=== PATIENT | male | born 1995 | race African-American/Black ===

== ENCOUNTER 2016-06-20 21:11 | Emergency (ER) | payer SELFPAY ==
[~2016-06-20] VITALS: Ht 195.6 cm; Wt 86.8 kg
[2016-06-20] MEDS ORDERED: KENALOG,ARISTOC80 GM TP (23:22)
[2016-06-20] MEDS ORDERED: ATARAX,VISTARIL25 MG PO (23:22)
[2016-06-20 23:28] VITALS: BP 141/74
== END 2016-06-20 23:44 | disposition home or self-care (01) ==
LOC: EME 21:11
DX: L73.9 Follicular disorder, unspecified (principal)
CPT/HCPCS: 99281; 99284